=== PATIENT | female | born 1955 | race Caucasian/White ===

== ENCOUNTER 2022-10-05 12:29 | Emergency (ER) | payer OTHER ==
[~2022-10-05] VITALS: Ht 165.1 cm; Wt 77.1 kg
[2022-10-05 17:51] VITALS: BP 136/69
== END 2022-10-05 17:51 | disposition home or self-care (01) ==
LOC: EDH 12:29
DX: M25.511 Pain in right shoulder (principal); R07.81 Pleurodynia; Z88.1 Allergy status to other antibiotic agents; Z88.8 Allergy status to other drugs, medicaments and biological substances; W01.0XXA Fall on same level from slipping, tripping and stumbling without subsequent striking against object, initial encounter; Y93.89 Activity, other specified; Y92.89 Other specified places as the place of occurrence of the external cause; Y99.8 Other external cause status
CPT/HCPCS: 71101; 73030; 93005

== ENCOUNTER 2024-10-11 19:15 | Inpatient (IN) | payer OTHER ==
[~2024-10-11] VITALS: Ht 165.1 cm; Wt 77.1 kg
--- NOTE | 2024-10-11 19:17 | NUR ---
DELAY IN TRIAGR DUE TO REGISTRTION
[2024-10-11] MEDS ORDERED: LAbetaLOL 20MG SYG IV ONE (19:30)
--- NOTE | 2024-10-11 19:30 | ERN ---
ED Note History of Present Illness Stated Complaint: HIGH BLOOD PRESSURE Chief Complaint: Hypertension Time Seen by MD: 19:27 Time Seen by Midlevel: 19:30 Dictation: Ms. Chrsitian Coronado this is a 69-year-old female with history of atrial fibrillation (cardioversion x2), CAD, arthritis, depression, and anxiety presented to the emergency department this evening for evaluation of elevated blood pressure readings. She states that she has been rinsing blood pressure readings with systolic greater than 200 x 20 4 hours. She states she feels lightheaded with dull headache and this evening she had some midsternal chest pain/pressure which she rated 1/10. Her states there blood pressure machine also showed a slow heart rate in the 30s to 50s. She denies having any fever, chills, shortness of breath, cough, palpitations, edema, abdominal pain, nausea, vomiting, diarrhea, melena, hematochezia, hematemesis, dysuria, or diaphoresis. She is currently visiting the [facility]; [facility] from [place]. She has no local physician/counseling director. She is currently taking metoprolol, Tikosyn, and Eliquis for her atrial fibrillation. Allergies: Coded Allergies: cephalexin (Unverified Allergy, Unknown, 10/05/22) doxycycline (Unverified Allergy, Unknown, 10/05/22) meperidine (Unverified Allergy, Unknown, 10/05/22) Emergency Care BRUSH CLEARER SURVEYING: None Past Medical History Past Medical History: A-Fib, Anxiety, Arthritis, Depression, Heart Disease Surgical History: Other (cardioversion x 2), BTL Surgical History Other: HIP LEFT, RIGHT KNEE PSYCH History: anxiety, depression Social History: Negative, Lives with family, Other ([facility] from [place]) History: Not Applicable RN Note Reviewed/Agreed w/PFSH: Yes Review of System Dictation REVIEW OF SYSTEMS: CONSTITUTIONAL: Patient denies fevers, chills, sweats and weight changes. EYES: Patient denies any visual symptoms. EARS, NOSE, AND THROAT: No difficulties with hearing. No symptoms of rhinitis or sore throat. CARDIOVASCULAR: Patient denies palpitations, orthopnea and paroxysmal nocturnal dyspnea. Reported feeling lightheaded. Reports elevated blood pressure readings with systolic level > 200. They also noted slow heart rate on machine at home 30-50. She takes Tikosyn and Metoprolol. She has chest pain/pressure rates 1/10. RESPIRATORY: No dyspnea on exertion, no wheezing or cough. GI: No nausea, vomiting, diarrhea, constipation, abdominal pain, hematochezia or melena. : No urinary hesitancy or dribbling. No nocturia or urinary frequency. No a bnormal urethral discharge. MUSCULOSKELETAL: No myalgias or arthralgias. NEUROLOGIC: No chronic headaches, no seizures. Patient denies numbness, tingling or weakness. PSYCHIATRIC: Patient denies problems with mood disturbance. No problems with anxiety. ENDOCRINE: No excessive urination or excessive thirst. DERMATOLOGIC: Patient denies any rashes or skin changes. Initial Vital Sign VS Vital Signs Date Time Temp Pulse Resp B/P (MAP) Pulse Ox O2 Delivery O2 Flow Rate FiO2 10/11/24 19:16 97.3 72 16 216/122 99 Room Air Physical Exam Dictation Vital signs: Reviewed. afebrile. Constitutional: No acute distress. Non-toxic appearing. significant other at bedside. Head/Face: Normocephalic, atraumatic. Eyes: Periorbital areas with no swelling, redness, or edema. Lids and lashes are normal. Conjunctival injection is absent. Sclera anicteric. Pupils equal, round, reactive to light. ENT: Pinnas intact and no signs of trauma or erythema. Ear canals clear and no discharge. TMs no erythema. No nasal discharge or bleeding noted. Oropharynx with no exudate, redness, swelling, masses, exudates, or evidence of obstruction. Uvula midline. Mucous membranes moist. Neck: Trachea midline, no masses palpated, and no cervical lymphadenopathy. No swelling. Supple, full range of motion. Chest/Axilla: No tenderness, no crepitus, no paradoxical movement, no retractions. Cardiovascular: Regular rate, regular rhythm, no murmur, no gallops. Symmetric pulses. No peripheral edema. BP 216/112. 12 lead EKG reflects a sinus rhythm with PVCs; no ST elevation. There is borderline ST depression in anterior lateral leads. Respiratory: Respirations even and unlabored. Lung sounds clear; no wheezes, rales or rhonchi. Room air SpO2 98% Gastrointestinal: Inspection is normal. No distention is appreciated. Bowel sounds are normal. No mass or organomegaly . There is no tenderness. No rebound. No rigidity. No voluntary or involuntary guarding. No Cunningham's sign. Neurological: Normal speech, gross motor function intact, gross sensory function intact. No focal weakness/Paresthesia. Musculoskeletal/Extremities: All extremities have full range of motion, no pain or tenderness on palpation. Symmetric pulses. Integumentary: Intact. Skin is normal color, warm and dry. Cap refill less than 3 seconds. Results (Laboratory/Radiology) Laboratory/Radiology Laboratory Tests Test 10/11/24 19:30 White Blood Count 6.9 K/uL (4.8-10.8) Red Blood Count 4.78 MIL/uL (4.00-5.50) Hemoglobin 14.6 g/dL (12.0-16.0) Hematocrit 44.5 % (36-48) Mean Corpuscular Volume 93.1 fL (79-99) Mean Corpuscular Hemoglobin 30.5 pg (27.0-33.0) Mean Corpuscular Hemoglobin Concent 32.8 g/dL (32.0-36.0) Red Cell Distribution Width 13.9 % (11.0-15.5) Platelet Count 256 K/uL (130-400) Mean Platelet Volume 9.5 fL (7.5-10.5) Immature Granulocyte % (Auto) 0.4 % (0-1) Neutrophils (%) (Auto) 55.9 % (40.0-77.0) Lymphocytes (%) (Auto) 33.3 % (21.0-51.0) Monocytes (%) (Auto) 9.0 % (3.0-13.0) Eosinophils (%) (Auto) 1.0 % (0.0-8.0) Basophils (%) (Auto) 0.4 % (0.0-5.0) Neutrophils # (Auto) 3.9 K/uL (1.8-7.7) Lymphocytes # (Auto) 2.3 K/uL (1.0-4.8) Monocytes # (Auto) 0.6 K/uL (0.1-1.0) Eosinophils # (Auto) 0.07 K/uL (0.00-0.70) Basophils # (Auto) 0.03 K/uL (0.00-0.20) Absolute Immature Granulocyte (auto 0.03 K/uL (0-1) Nucleated Red Blood Cells 0.0 % (0.0-0.19) Sodium Level 136 mmol/L (136-145) Potassium Level 3.8 mmol/L (3.5-5.1) Chloride Level 97 mmol/L (101-111) L Carbon Dioxide Level 31 mmol/L (21-32) Blood Urea Nitrogen 9 mg/dL (7-18) Creatinine 0.9 mg/dL (0.5-1.0) Glomerular Filtration Rate Calc 68 mL/min (>90) Random Glucose 105 mg/dL (70-105) Total Calcium 10.3 mg/dL (8.5-10.1) H Magnesium Level 1.80 mg/dL (1.80-2.40) Total Creatine Kinase 50 U/L (21-232) Troponin I High Sensitivity 15 ng/L (4-50) B-Type Natriuretic Peptide 137 pg/mL (0-100) H Labs Reviewed?: Yes EKG Comment: EKG Interpretation: Time Reviewed: 1957 Ventricular rate: 66 bpm PA Interval: 158 ms QRS duration: [address] elevation; some ST depression in anterior lateral leads Clinical impression: Sinus rhythm with PVCs EKG Reviewed and interpreted by Dr. Dinah Duque X-RAY Comment: PATIENT: DAKSHA ROJAS MR#: [id number] : 1955 SEX: F AGE: 69 LOCATION: [facility] ORDER 23 STATUS: [facility] REPORT#: [id number] SERVICE 22 REASON: CHEST PAIN ORDERING PHYSICIAN: KRISTIN DUQUE MD PROCEDURE: CXR1VW - CHEST 1VW CHEST 1VW CLINICAL HISTORY: CHEST PAIN COMPARISON: 10/05/2022 TECHNIQUE: Single view of the chest was obtained. FINDINGS: Lungs are clear. The cardiac size and mediastinum are unremarkable. The bony structures are stable. IMPRESSION: No acute cardiopulmonary process identified. DICTATED BY: MIRTA MURO DO DATE: 10/11/242050 ELECTRONICALLY SIGNED BY: MIRTA MURO DO DATE: 10/11/242054 ED Course ED Course Orders Procedure Category Date Status Time Vital Signs Per CPOE 10/11/24 Transmitted Routine 19:23 B-Type Natriuretic LAB 10/11/24 Complete Peptide 19:23 Chest 1vw RAD 10/11/24 Resulted 19:23 12 Lead Ekg Tracing- EKG 10/11/24 Logged Technical 19:23 Oxygen By Nc/Pulse Ox CPOE 10/11/24 Transmitted 19:23 Maintain Iv CPOE 10/11/24 Transmitted 19:23 Iv Insertion CPOE 10/11/24 Transmitted 19:23 Cardiac Monitoring CPOE 10/11/24 Transmitted 19:23 Pulse Oximetry With CPOE 10/11/24 Transmitted Vs And Prn 19:23 Cbc With Differential LAB 10/11/24 Complete 19:23 Activity: Br W/Brp CPOE 10/11/24 Transmitted With Assist 19:23 Creatine Kinase, Total LAB 10/11/24 Complete 19:23 Troponin I High LAB 10/11/24 Complete Sensitivity 19:23 Urinalysis Profile LAB 10/11/24 Logged 19:23 Troponin Poc Order LAB 10/11/24 Complete Only 19:23 Bedside Troponin-I LAB.ER 10/11/24 In Process (Poc) 19:23 Basic Metabolic Panel LAB 10/11/24 Complete 19:23 Aspirin 325mg Tab PHA 10/11/24 Complete (Aspirin 325mg Tab) 19:30 Labetalol 20mg Syg PHA 10/11/24 Complete (Trandate 20mg Syg) 19:30 Magnesium LAB 10/11/24 Complete 20:10 Current Medications Medications (Trade) Dose Ordered Sig/Cindy Route PRN Reason Start Time Stop Time Status Last Admin Dose Admin Aspirin (Aspirin 325mg Tab) 325 mg ONCE ONCE PO 10/11/24 19:30 10/11/24 19:34 DC 10/11/24 20:11 Labetalol HCl (TRANdate 20MG SYG) 10 mg ONCE ONCE IV 10/11/24 19:30 10/11/24 20:11 DC Vital Signs Date Time Temp Pulse Resp B/P (MAP) Pulse Ox O2 Delivery O2 Flow Rate FiO2 10/11/24 19:16 97.3 72 16 216/122 99 Room Air Upon arrival to the ED noted elevated blood pressure reading of 216/122. Twelve lead EKG reflects a sinus rhythm with unifocal PVC and no ST elevations; borderline ST depression in anterior lateral wheeze. Laboratory findings as noted below Cl 97, Ca 10.3, and BNP 137. Initial troponin is not elevated at 15. Magnesium 1.8. while in the ED she received Aspirin. Patient took her own doses of Tikosyn and Eliquis. BP trending down; 178/85. Chest pressure rated 1/10. Echocardiogram is pending. These findings were discussed with [facility] Hospitalist CHERYL Frias who accepts patient for admission to group. Medical Decision Making MDM MDM: Differential diagnosis: ACS, atrial fibrillation with RVR, electrolyte derangement Rationale: Tests considered and ordered secondary to shared decision making include: labs, ECG and radiology Previous outside records reviewed: Old ER visits. Risk of complication and/or morbidity or mortality of patient management: None Medications-Per medication reconciliation Need for hospitalization: Patient does meet criteria for hospitalization. Need for emergency major/minor surgery: No There are no social concerns with this patient. Prescription drug management Prescriptions will include symptomatic care Patient's prior external medical records from other ER visits were reviewed by me as indicated. Prior testing and results from previous visits were reviewed. Prior tests were taken into account with medical decision making and resource utilization, independent historian/historians were used to obtain complete medical history. I independently interpreted the test that were performed, results were reviewed by me and considered findings on radiology if ordered. Medical management and examination interpretation discussions were had by me with other qualified healthcare professionals as indicated for the patient's care. DX & DISP Disposition: Discharge Departure Impression: Primary Impression: Chest pain with high risk for cardiac etiology Additional Impressions: Hypertensive urgency, Bradycardia, History of atrial fibrillation Condition: Stable Assign Patient to: Dr. Molina Jacobs Referrals: SELF,REFERRAL (PCP) NITA SILVA NP Oct 11, 2024 19:30
[2024-10-11 19:37] LABS: BASOPHILS # (AUTO) 0.03 K/uL (0.00-0.20); BASOPHILS % (AUTO) 0.4 % (0.0-5.0); EOSINOPHILS # (AUTO) 0.07 K/uL (0.00-0.70); HEMATOCRIT 44.5 % (36-48); IMMATURE GRANULOCYTE ABSOLUTE 0.03 K/uL (0-1); LYMPHOCYTES # (AUTO) 2.3 K/uL (1.0-4.8); LYMPHOCYTES % (AUTO) 33.3 % (21.0-51.0); MEAN CORPUSCULAR HEMOGLOBIN 30.5 pg (27.0-33.0); MEAN CORPUSCULAR HGB CONC 32.8 g/dL (32.0-36.0); MEAN CORPUSCULAR VOLUME 93.1 fL (79-99); MONOCYTES # (AUTO) 0.6 K/uL (0.1-1.0); NEUTROPHILS # (AUTO) 3.9 K/uL (1.8-7.7); NEUTROPHILS % (AUTO) 55.9 % (40.0-77.0); PLATELET COUNT (AUTO) 256 K/uL (130-400); RED BLOOD CELL COUNT(AUTO) 4.78 MIL/uL (4.00-5.50); RED CELL DISTRIBUTION WIDTH 13.9 % (11.0-15.5); WHITE BLOOD COUNT (AUTO) 6.9 K/uL (4.8-10.8)
[2024-10-11 19:44] LABS: CREATININE 0.9 mg/dL (0.5-1.0); POTASSIUM 3.8 mmol/L (3.5-5.1)
[2024-10-11] MEDS: ASPIRIN 325MG TAB PO ONE (20:11)
[2024-10-11 20:26] LABS: B-TYPE NATRIURETIC PEPTIDE 137 pg/mL (0-100)
--- NOTE | 2024-10-11 20:55 | HMCIMG ---
CHEST 1VW CLINICAL HISTORY: CHEST PAIN COMPARISON: 10/05/2022 TECHNIQUE: Single view of the chest was obtained. FINDINGS: Lungs are clear. The cardiac size and mediastinum are unremarkable. The bony structures are stable. IMPRESSION: No acute cardiopulmonary process identified.
--- NOTE | 2024-10-11 21:56 | HP ---
[facility] HISTORY AND PHYSICAL Date of Service: Oct 11, 2024 Time of Service: 21:56 ATTENDING/SUPERVISING PHYSICIANS: Dr. Jacobs and Dr. Momin HISTORY OF PRESENT ILLNESS: Ms. Christian Coronado this is a 69-year-old female with history of atrial fibrillation (cardioversion x2), CAD, arthritis, depression, and anxiety presented to the emergency department for evaluation of elevated blood pressure readings. The patient stated that her systolic blood pressure has been greater than 200 for 4 hours. Her reported in heart rate in the 30s to 50s. She reported associated symptoms of lightheadedness, dull headache, some midsternal chest pain/pressure which she rated 1/10 which prompted the ED visit. She denied having any fever, chills, shortness of breath, cough, palpitations, edema, abdominal pain, nausea, vomiting, diarrhea, melena, hematochezia, hematemesis, dysuria, or diaphoresis. She is currently visiting the [facility]; she is a winter [place] from [place]. She has no local physician nor cardio logist. She sees a cardiac sales and operations trainee [facility] who instructed her to take Tikosyn BID. She is also currently taking metoprolol and Eliquis for her atrial fibrillation. ED provider reports that the patient was noted to having bigeminy, and bra dycardia, and hypotension. ED provider reported that the patient was informed not to take her night time Tikosyn, but that the patient is still took it. ED provider request patient be admitted with the diagnosis of chest pain with high risk for cardiac etiology, hypertension, and bradycardia. The patient was admitted under the [facility] hospitalist team. I went to assess the patient at bedside. Patient denied chest pain, shortness of breath, any other pain, problem or concern during my evaluation. was at bedside. I informed them of labs, diagnostics, and plan of care. I answered patient's multiple questions. They verbalized understanding and are in agreement with the plan. Plan and assessment are listed below. REVIEW OF SYSTEMS 12-point ROS reviewed with patient. All pertinent positives mentioned above. Otherwise negative, non-pertinent, or noncontributory. PAST MEDICAL HISTORY: As mentioned above PAST SURGICAL HISTORY: Cardioversion x2, BTL, left hip surgery, right knee surgery PAST SOCIAL HISTORY: Patient denied: Alcohol, tobacco, illicit drug use. Lives with family. Patient is a [place] from [place]. FAMILY HISTORY: Noncontributory Coded Allergies: cephalexin (Unverified Allergy, Unknown, 10/05/22) doxycycline (Unverified Allergy, Unknown, 10/05/22) meperidine (Unverified Allergy, Unknown, 10/05/22) PHYSICAL EXAM GENERAL APPEARANCE: The patient is awake, alert, and oriented, in no acute cardiopulmonary distress. NEUROLOGICAL: Cranial nerves II-XII grossly intact. Motor is 5/5 in bilateral upper and lower extremities proximal to distal. No sensory deficits. HEENT: Face is symmetric. Pupils are equal and reactive. Extraocular movements are intact. NECK: Supple. No JVD. No thyromegaly. No submental, submandibular, pre- /postauricular, occipital or supraclavicular lymphadenopathy. CHEST: Normal chest expansion. No Telemetry. LUNGS: Absence of any rales, rhonchi or any wheezing. CARDIOVASCULAR: Regular. S1 and S2 normal. No appreciable rubs, murmurs or gallops. ABDOMEN: Soft, nontender, and nondistended. There is no rebound, voluntary guarding, or rigidity. : Deferred. No [place]. EXTREMITIES: Non-edematous and not cyanotic. No clubbing. Good capillary refi ll. SKIN: No skin breakdown. Vital Sign (Last 24 Hours) 10/11/24 19:16 Temp 97.3 Pulse 72 Resp 16 B/P (MAP) 216/122 Pulse Ox 99 O2 Delivery Room Air LABS: Laboratory: Test 10/11/24 21:20 10/11/24 19:30 Range/Units Troponin I < 0.05 0.00-0.05 ng/mL White Blood Count 6.9 4.8-10.8 K/uL Red Blood Count 4.78 4.00-5.50 MIL/uL Hemoglobin 14.6 12.0-16.0 g/dL Hematocrit 44.5 36-48 % Mean Corpuscular Volume 93.1 79-99 fL Mean Corpuscular Hemoglobin 30.5 27.0-33.0 pg Mean Corpuscular Hemoglobin Concent 32.8 32.0-36.0 g/dL Red Cell Distribution Width 13.9 11.0-15.5 % Platelet Count 256 130-400 K/uL Mean Platelet Volume 9.5 7.5-10.5 fL Immature Granulocyte % (Auto) 0.4 0-1 % Neutrophils (%) (Auto) 55.9 40.0-77.0 % Lymphocytes (%) (Auto) 33.3 21.0-51.0 % Monocytes (%) (Auto) 9.0 3.0-13.0 % Eosinophils (%) (Auto) 1.0 0.0-8.0 % Basophils (%) (Auto) 0.4 0.0-5.0 % Neutrophils # (Auto) 3.9 1.8-7.7 K/uL Lymphocytes # (Auto) 2.3 1.0-4.8 K/uL Monocytes # (Auto) 0.6 0.1-1.0 K/uL Eosinophils # (Auto) 0.07 0.00-0.70 K/uL Basophils # (Auto) 0.03 0.00-0.20 K/uL Absolute Immature Granulocyte (auto 0.03 0-1 K/uL Nucleated Red Blood Cells 0.0 0.0-0.19 % Sodium Level 136 136-145 mmol/L Potassium Level 3.8 3.5-5.1 mmol/L Chloride Level 97 L 101-111 mmol/L Carbon Dioxide Level 31 21-32 mmol/L Blood Urea Nitrogen 9 7-18 mg/dL Creatinine 0.9 0.5-1.0 mg/dL Glomerular Filtration Rate Calc 68 >90 mL/min Random Glucose 105 70-105 mg/dL Total Calcium 10.3 H 8.5-10.1 mg/dL Magnesium Level 1.80 1.80-2.40 mg/dL Total Creatine Kinase 50 21-232 U/L Troponin I High Sensitivity 15 4-50 ng/L B-Type Natriuretic Peptide 137 H 0-100 pg/mL DIAGNOSTICS / RADIOLOGY: [ ] ASSESSMENT: Chest pain with high risk for cardiac etiology, POA Hypertensive urgency, POA Bradycardia, POA Arrhythmias, POA Acute complicated cystitis, POA Hyperglycemia History of AFib and cardioversion x2, on metoprolol, Eliquis, and Tikosyn Anxiety/depression Coronary artery disease Arthritis Septuagenarian atrial fibrillation (cardioversion x2), CAD, arthritis, depression, and anxiety PLAN: Admit to PCCU with continuous cardiac monitoring. Troponin and EKGs series. Cardiology consult in a.m.. 2D echo in a.m. Start home medication Eliquis. Hold home medication metoprolol and Tikosyn due to severe bradycardia. Reconcile home medications once available. P.r.n. medications for: Pain management, hypertension, nausea, vomiting, fever, constipation. Oxygen supplementation as needed to maintain oxygen levels equal to greater than 92%. Aspirin 81 mg p.o. daily. Atorvastatin 40 mg p.o. daily. Start Rocephin 2 grams IV daily. (Cephalexin reaction "Vomiting only") I&Os. Blood pressure checks every 4 hours and as needed. Glucometer checks before meals and at bedtime with insulin regular sliding scale. Monitor renal and liver function. Monitor electrolytes and treat accordingly. A.m. labs: CBC, BMP, Mag, phos, troponin, A1c, TSH. DVT and GI prophylaxis MARYJO DONATO LOGISTICAL ENGINEER Oct 11, 2024 21:56
[2024-10-11] MEDS ORDERED: ondanSETRON 4MG INJ IVP PRN (22:30)
[2024-10-11] MEDS ORDERED: acetaMINOPHEN 650 MG SUPPOSITORY RC PRN (22:30)
[2024-10-11] MEDS ORDERED: LACTULOSE 20 GM/30 ML UDCUP PO PRN (22:30)
[2024-10-11] MEDS ORDERED: acetaMINOPHEN 325 MG TAB PO PRN (22:30)
[2024-10-11] MEDS ORDERED: doCUSate SODIUM 100 MG CAP PO PRN (22:30)
[2024-10-11] MEDS ORDERED: TEMAZepam 15 MG CAPSULE PO PRN (22:30)
[2024-10-12] MEDS: atorVAStatin 40 MG TABLET PO SCH (00:17)
[2024-10-12] MEDS: hydrALAZine 20MG/ML VIAL IV PRN (00:18)
[2024-10-12 00:29] LABS: APPEARANCE,URINE CLEAR (CLEAR); BILIRUBIN,URINE NEGATIVE (NEGATIVE); COLOR,URINE LIGHT-YELLOW (YELLOW); GLUCOSE, URINE (UA) NEGATIVE (NEGATIVE); KETONES,URINE 10 mg/dL (NEGATIVE); LEUKOCYTE ESTERASE ,URINE 250 Leu/uL (NEGATIVE); NITRATE,URINE NEGATIVE (NEGATIVE); OCCULT BLOOD,URINE SMALL (NEGATIVE); PROTEIN,URINE NEGATIVE (NEGATIVE); UROBILINOGEN,URINE 0.2 mg/dL (0.2-1.0)
[2024-10-12 00:34] LABS: ADD UA MICROSCOPIC YES
[2024-10-12 00:36] LABS: MUCUS,URINE RARE LPF (None Seen); SQUAMOUS EPITHELIAL CELL,UR RARE /HPF (0-2)
--- NOTE | 2024-10-12 01:34 | EKG ---
[facility] Test Date: 2024-10-11 Test Time: 19:56:17 Pat Name: DAKSHA GUERRERO Department: EDHIP Room: ED 17 Gender: F Manager Of Learning: [id number] : 1955 Requested By: KRISTIN GUTIERREZ Order Number: [id number] Reading MD: Alo Hilliard Measurements Intervals [place] Rate: 66 P: 80 SD: 158 QRS: -21 QRSD: 101 T: 52 QT: 448 QTc: 463 Interpretive Statements Sinus rhythm Multiple premature complexes, vent & supraven Borderline ST depression, anterolateral leads Electronically Signed On 10-12-2024 14:24:55 COUNTER SUPERVISOR by Alo Hilliard Please click the below link to view image of tracing.
[2024-10-12 07:00] LABS: HEMATOCRIT 41.1 % (36-48); MEAN CORPUSCULAR HEMOGLOBIN 30.5 pg (27.0-33.0); MEAN CORPUSCULAR HGB CONC 32.8 g/dL (32.0-36.0); RED BLOOD CELL COUNT(AUTO) 4.42 MIL/uL (4.00-5.50); WHITE BLOOD COUNT (AUTO) 6.5 K/uL (4.8-10.8)
[2024-10-12 07:20] LABS: HEMOGLOBIN A1C 5.7 % (4.0-6.0)
[2024-10-12] MEDS: INSULIN humuLIN R 100 UNIT/ML 3ML SQ SCH (07:30)
--- NOTE | 2024-10-12 07:30 | NUR ---
PT. FAMILY MEMBERS REFUSING ANY TYPE OF TREATMENT UNTIL SPEAK TO RENAL MD INCLUDING LABS, XRAYS.
[2024-10-12 07:32] LABS: CREATININE 0.8 mg/dL (0.5-1.0); MAGNESIUM 1.7 mg/dL (1.80-2.40); PHOSPHORUS 3.6 mg/dL (2.5-4.9); POTASSIUM 3.8 mmol/L (3.5-5.1); THYROID STIMULATING HORMONE 3.67 uIU/mL (0.36-3.74)
[2024-10-12] MEDS: ASPIRIN 81MG CHEW TAB PO SCH (08:48)
[2024-10-12] MEDS: MAGNESIUM 2GM PREMIX 50ML 50 ML IV ONE (09:10)
[2024-10-12] MEDS ORDERED: MAGNESIUM 2GM PREMIX 50ML 50 ML IV PRN (09:30)
[2024-10-12] MEDS ORDERED: PoTASSium chl 10% ELIXIR 20MEQ 20 MEQ/15 ML UDCUP PO PRN (09:30)
[2024-10-12] MEDS ORDERED: ceFEPime HCL 1 GM VIAL IVPB SCH (09:30)
[2024-10-12] MEDS ORDERED: GLUCAGON 1MG KIT 1 MG ML IM PRN (09:30)
[2024-10-12] MEDS ORDERED: PoTASSium chloRIDE 10MEQ/100ML 100 ML IV PRN (09:30)
[2024-10-12] MEDS: CEFTRIAXONE 2GM VIAL IVPB SCH (09:30)
[2024-10-12] MEDS ORDERED: DEXTROSE 50%-WATER 50 ML DISP.SYRIN IV PRN (09:30)
[2024-10-12] MEDS ORDERED: BUPR-93 PO (09:34)
[2024-10-12] MEDS ORDERED: METO-408 PO (09:34)
[2024-10-12] MEDS ORDERED: APIX5TAB PO (09:34)
[2024-10-12] MEDS ORDERED: [UNRECOGNIZED DRUG - CODE] PO (09:34)
[2024-10-12] MEDS ORDERED: ARIP5TAB16 PO (09:34)
--- NOTE | 2024-10-12 10:28 | EKG ---
[facility] Test Date: 2024-10-12 Test Time: 10:21:55 Pat Name: DAKSHA GUERRERO Department: EDHIP Room: ED 17 Gender: F Senior Cytogenetics Laboratory Director: [id number] : 1955 Requested By: MARYJO DONATO Order Number: [id number] Reading MD: Alo Hilliard Measurements Intervals [place] Rate: 72 P: 84 UT: 150 QRS: 11 QRSD: 94 T: 84 QT: 429 QTc: 478 Interpretive Statements Sinus rhythm Multiform ventricular premature complexes Borderline ST depression, anterolateral leads Electronically Signed On 10-12-2024 14:25:08 NEUROLOGY PROFESSOR by Alo Hilliard Please click the below link to view image of tracing.
--- NOTE | 2024-10-12 11:13 | CONS ---
CONSULT NOTE: CARDIOLOGY Reason for consult: HYPERTENSION, ATRIAL FIBRILLATION HPI/story at presentation: This is a pleasant 69-year-old female with past medical history as below presents with complaints of dizziness and was found to be hypertensive. No active issues with chest discomfort or shortness of breath etc. Blood pressures are better in the 1 3-1 50 range at this time. She has noticed atrial fibrillation on Tikosyn and also has a history of bradycardia at presentation. She had multiple PVCs as well. Slowest reported rate in the 70s and 80s and PVCs may have contributed to pseudo bradycardia. Subjective: 10/12/2024 no active cardiac complaints Past medical history: See below Allergies, Meds See chart Review of systems Review of Systems Constitutional: Negative for chills and fever. HENT: Negative for ear discharge and ear pain. Eyes: Negative for photophobia and discharge. Respiratory: Negative for cough, sputum production and stridor. Cardiovascular: Negative for chest pain and palpitations. Gastrointestinal: Negative for diarrhea and vomiting. Genitourinary: Negative for frequency. Musculoskeletal: Negative for myalgias. Skin: Negative for rash. Neurological: Negative for focal weakness and seizures. Endo/Heme/Allergies: Negative for polydipsia. Psychiatric/Behavioral: Negative for hallucinations. Vitals see chart PHYSICAL EXAMINATION GENERAL: The patient is alert and oriented*3 HEENT: Nonicteric sclerae, non traumatic HEART: Regular rate and rhythm with no murmurs LUNGS: Clear to auscultation bilaterally ABDOMEN: No acute issues, non tender GENITAL, RECTAL: deferred SKIN: No rash NEUROLOGIC: NFND EXTREMITIES: No edema ASSESSMENT HYPERTENSION WITH URGENCY At presentation ATRIAL FIBRILLATION With rhythm control with Tikosyn at home Also beta-heena, anticoagulation with Eliquis Will magnesium, replaced, 09/2024 BRADYCARDIA At presentation MULTIPLE QT PROLONGING AGENTS Patient is currently on Tikosyn bupropion and Abilify Caution with multiple QT prolonging agents CYSTITIS At presentation On antibiotics, 10/12/2024 CORE MEASURES On aspirin statin OTHER MEDICAL PROBLEMS anxiety, depression Arthritis PLAN 10/12/2024 will add a small dose of losartan to help her blood pressures and follow blood pressures while inpatient. Will need outpatient log of blood pressures and outpatient adjustment of blood pressure regimen as well. Current blood pressures are 130-1 50 range. Will restart home medications including Tikosyn and Eliquis. Will need to watch QT interval while on bupropion and Abilify and Tikosyn. She is on a smaller dose of Tikosyn but risk is on the higher side with 3 QT prolonging agents and multiple PVCs. Magnesium was already replaced. ATTESTATION I was involved substantially in the care of this patient Number and complexity of problems addressed: 1 acute illness with systemic features Amount and or complexity of data Review of prior external note(s) from each unique source: 2+ Ordering of each unique test : 0 Review of the result(s) of each unique test: 2+ Assessment requiring an independent historian(s): No Independent interpretation of test performed by another MD/QHCP/appropriate source (not separately reported) : No Discussion of management or test interpretation with external MD/QHCP /appropriate source (not separately reported) : No Risk status (cardiac, billing related): Moderate DELORIS DELUNA MD Oct 12, 2024 11:12
[2024-10-12] MEDS: PoTASSium chloRIDE 10MEQ SR 10 MEQ/TAB TAB.SR.24H PO PRN (11:34)
--- NOTE | 2024-10-12 11:49 | NUR ---
PT. TOOK HER OWN HOME MEDICATIONS INCLUDING ELIQUIS DIRECTED BY . WILL CONT TO MONITOR PER PROTOCOL.
[2024-10-12 12:00] VITALS: BP 136/70; PULSE 71; RESP 16; TEMP 98
--- NOTE | 2024-10-12 13:09 | NUR ---
DCP Patient is a [place] from [place], living in a second floor condo on [address] with a tub and lives with Doug Gonzales, [phone]. States she is retired, remains independent and drives self, not in [place]. able to complete ADL's on her own. has a cane available, history of total knee replacement, right five months ago. Denies home health services, home care provider or dialysis. PCP - [place] Fuel Handler Sagar Grimes [facility] Upon discharge, Doug Gonzales, [phone] will take her home and assist with care. Addendum: 10/12/24 at 1316 by DENISE BADILLO RN CM Amended: Links added.
--- NOTE | 2024-10-12 14:35 | EKG ---
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 : 1955 Requested By: MARYJO DONATO Order Number: [id number] Reading MD: Bj Oakley Measurements Intervals [place] Rate: 72 P: 84 FL: 129 QRS: -6 QRSD: 98 T: 61 QT: 464 QTc: 503 Interpretive Statements Sinus rhythm Multiple premature complexes, vent & supraven Borderline ST depression, anterolateral leads Prolonged QT interval Compared to ECG 10/12/2024 10:21:55 Prolonged QT interval now present Ventricular premature complex(es) no longer present ST (T wave) deviation still present Electronically Signed On 10-13-2024 16:04:07 COMPLAINT OPERATOR by Bj Oakley Please click the below link to view image of tracing.
--- NOTE | 2024-10-12 14:40 | PN ---
[facility] PROGRESS NOTE Date of Service: Oct 12, 2024 Time of Service: 14:30 SUBJECTIVE: Patient resting comfortably in bed. No new complaints concerns. No acute events reported overnight.Blood pressures improved. REVIEW OF SYSTEMS 12-point ROS reviewed with patient. All pertinent positives mentioned above. Otherwise negative, non-pertinent, or noncontributory. PHYSICAL EXAM GENERAL APPEARANCE: The patient is awake, alert, and oriented, in no acute cardiopulmonary distress. NEUROLOGICAL: Cranial nerves II-XII grossly intact. Motor is 5/5 in bilateral upper and lower extremities proximal to distal. No sensory deficits. HEENT: Face is symmetric. Pupils are equal and reactive. Extraocular movements are intact. NECK: Supple. No JVD. No thyromegaly. No submental, submandibular, pre- /postauricular, occipital or supraclavicular lymphadenopathy. CHEST: Normal chest expansion. No Telemetry. LUNGS: Absence of any rales, rhonchi or any wheezing. CARDIOVASCULAR: Regular. S1 and S2 normal. No appreciable rubs, murmurs or gallops. ABDOMEN: Soft, nontender, and nondistended. There is no rebound, voluntary guarding, or rigidity. : Deferred. No Damico. EXTREMITIES: Non-edematous and not cyanotic. No clubbing. Good capillary refill. SKIN: No skin breakdown. Vital Signs (last 8hr) Date Time Temp Pulse Resp B/P (MAP) Pulse Ox O2 Delivery O2 Flow Rate FiO2 10/12/24 07:03 70 16 121/65 99 Room Air* 0 21 LABS: Laboratory: Test 10/12/24 12:21 10/12/24 11:41 10/12/24 06:39 10/12/24 00:15 Range/Units Troponin I High Sensitivity 20 4-50 ng/L Whole Blood Glucose 94 70-110 MG/DL White Blood Count 6.5 4.8-10.8 K/uL Red Blood Count 4.42 4.00-5.50 MIL/uL Hemoglobin 13.5 12.0-16.0 g/dL Hematocrit 41.1 36-48 % Mean Corpuscular Volume 93.0 79-99 fL Mean Corpuscular Hemoglobin 30.5 27.0-33.0 pg Mean Corpuscular Hemoglobin Concent 32.8 32.0-36.0 g/dL Red Cell Distribution Width 14.0 11.0-15.5 % Platelet Count 229 130-400 K/uL Mean Platelet Volume 9.6 7.5-10.5 fL Nucleated Red Blood Cells 0.0 0.0-0.19 % Sodium Level 136 136-145 mmol/L Potassium Level 3.8 3.5-5.1 mmol/L Chloride Level 98 L 101-111 mmol/L Carbon Dioxide Level 30 21-32 mmol/L Blood Urea Nitrogen 8 7-18 mg/dL Creatinine 0.8 0.5-1.0 mg/dL Glomerular Filtration Rate Calc 79 >90 mL/min Random Glucose 131 H 70-105 mg/dL Hemoglobin A1c 5.7 4.0-6.0 % Estimated Average Glucose (eAG) 117 70-126 mg/dL Total Calcium 9.8 8.5-10.1 mg/dL Phosphorus Level 3.6 2.5-4.9 mg/dL Magnesium Level 1.70 L 1.80-2.40 mg/dL Thyroid Stimulating Hormone (TSH) 3.67 0.36-3.74 uIU/mL Urine Color LIGHT-YELLOW YELLOW Urine Appearance CLEAR CLEAR Urine pH 6.0 5.0-8.0 Urine Specific Harlan 1.008 1.001-1.031 Urine Protein NEGATIVE NEGATIVE mg/dL Urine Glucose (UA) NEGATIVE NEGATIVE mg/dL Urine Ketones 10 H NEGATIVE mg/dL Urine Occult Blood SMALL H NEGATIVE Urine Nitrate NEGATIVE NEGATIVE Urine Bilirubin NEGATIVE NEGATIVE mg/dL Urine Urobilinogen 0.2 0.2-1.0 mg/dL Urine Leukocyte Esterase 250 H NEGATIVE Gwen/uL Urine RBC 11-25 H 0-1 /HPF Urine WBC 11-25 H 0-1 /HPF Urine Squamous Epithelial Cells RARE 0-2 /HPF Urine Bacteria None None Seen /HPF Test 10/11/24 21:20 10/11/24 19:30 Range/Units Troponin I < 0.05 0.00-0.05 ng/mL Immature Granulocyte % (Auto) 0.4 0-1 % Neutrophils (%) (Auto) 55.9 40.0-77.0 % Lymphocytes (%) (Auto) 33.3 21.0-51.0 % Monocytes (%) (Auto) 9.0 3.0-13.0 % Eosinophils (%) (Auto) 1.0 0.0-8.0 % Basophils (%) (Auto) 0.4 0.0-5.0 % Neutrophils # (Auto) 3.9 1.8-7.7 K/uL Lymphocytes # (Auto) 2.3 1.0-4.8 K/uL Monocytes # (Auto) 0.6 0.1-1.0 K/uL Eosinophils # (Auto) 0.07 0.00-0.70 K/uL Basophils # (Auto) 0.03 0.00-0.20 K/uL Absolute Immature Granulocyte (auto 0.03 0-1 K/uL Total Creatine Kinase 50 21-232 U/L B-Type Natriuretic Peptide 137 H 0-100 pg/mL Current Medications Medications (Trade) Dose Ordered Sig/Cindy Route PRN Reason Start Time Stop Time Status Last Admin Dose Admin Acetaminophen (TYLenol 325MG TAB) 650 mg Q6H PRN PO FEVER/MILD PAIN LEVEL 1-3 10/11/24 22:30 11/10/24 22:29 Acetaminophen (TYLenol 650MG SUPPOSITORY) 650 mg Q6H PRN RC FEVER / MILD PAIN 1-3 IF NPO 10/11/24 22:30 11/10/24 22:29 Aspirin (Aspirin 81mg Chew Tab) 81 mg DAILY PO 10/12/24 09:00 11/11/24 08:59 10/12/24 08:48 81 MG Atorvastatin Calcium (LIPItor 40MG) 40 mg HS PO 10/11/24 22:20 11/10/24 22:19 10/12/24 00:17 40 MG Cefepime HCl (MAXipime 1 GM vial) 1 gm Q8H IVPB 10/12/24 09:30 10/12/24 09:26 DC Ceftriaxone Sodium (Rocephin 2gm Inj) 2 gm Q24H IVPB 10/12/24 09:30 10/22/24 09:29 10/12/24 09:30 2 GM Dextrose (D50w) 50 ml AD PRN IV HYPOGLYCEMIA PROTOCOL 10/12/24 09:30 11/11/24 09:29 Docusate Sodium (COLace 100MG CAP) 100 mg BID PRN PO c 10/11/24 22:30 11/10/24 22:29 Glucagon (Glucagon 1mg Kit) 1 mg AD PRN IM HYPOGLYCEMIA PROTOCOL 10/12/24 09:30 11/11/24 09:29 Hydralazine HCl (APRESOLine 20MG INJ) 10 mg Q2H PRN IV SBP GREATER THAN 160 10/11/24 22:30 11/10/24 22:29 10/12/24 00:18 10 MG Insulin Human Regular (humuLIN R 100 UNIT/ML 3ML) INSULIN SLIDING SCAL... ACHS SQ 10/12/24 07:30 11/11/24 07:29 Lactulose (Constulose 20gm/ 30ml Udcup) 20 gm Q6H PRN PO CONSTIPATION 10/11/24 22:30 11/10/24 22:29 Magnesium Sulfate 50 ml @ 0 mls/hr PROTOCOL PRN IV MAGNESIUM PROTOCOL 10/12/24 09:30 11/11/24 09:29 Ondansetron HCl (zoFRAN 4MG INJ) 4 mg Q6H PRN IVP NAUSEA/VOMITING 10/11/24 22:30 11/10/24 22:29 Potassium Chloride 100 ml @ 100 mls/hr AD PRN IV POTASSIUM PROTOCOL 10/12/24 09:30 11/11/24 09:29 Potassium Chloride (K-Dur 10meq Sr Tab) 10 meq AD PRN PO POTASSIUM PROTOCOL 10/12/24 09:30 11/11/24 09:29 10/12/24 14:26 10 MEQ Potassium Chloride (KCl 10% Elixir 20meq/15ml) 10 meq AD PRN PO POTASSIUM PROTOCOL 10/12/24 09:30 11/11/24 09:29 Temazepam (restORIL 15 MG CAP) 15 mg HS PRN PO INSOMNIA/SLEEP 10/11/24 22:30 11/10/24 22:29 DIAGNOSTICS / RADIOLOGY: [ ] ASSESSMENT: Chest pain with high risk for cardiac etiology, POA Hypertensive urgency, POA Bradycardia, POA Arrhythmias, POA Acute complicated cystitis, POA Hyperglycemia History of AFib and cardioversion x2, on metoprolol, Eliquis, and Tikosyn Anxiety/depression Coronary artery disease Arthritis Septuagenarian atrial fibrillation (cardioversion x2), CAD, arthritis, depression, and anxiety PLAN: Continue ceftriaxone Trend WBCs continue aripiprazole, Wellbutrin and temazepam O2 nasal cannula as needed Continue Eliquis, aspirin, atorvastatin, dofetilide and metoprolol Monitor blood pressure Follow up with Cardiology Heart healthy diet No need for GI prophylaxis Continue Colace No need for IV fluids Trend a.m. BMP Replete electrolytes as necessary DVT prophylaxis with Lovenox Trend a.m. CBC Full code Case was discussed with patient's nurse at bedside Attention time greater than 30 minutes JOB CASEY IV, MD Oct 12, 2024 14:40
--- NOTE | 2024-10-12 15:26 | HMCSR ---
APPROVED REPORT EXAM: Two-dimensional and M-mode echocardiogram with Doppler and color Doppler. INDICATION ICD: Atrial Fibrillation 2D Dimensions RVDd3.5 cmLVEF(%)71.1 (>50%)LVED Vol(simp.)82.0 mL IVSd0.6 (0.7-1.1cm)FS(%)41 %LVES Vol(simp.)30.0 mL LVDd5.0 (3.8-5.6cm)LA (2D)4.2 (1.6-4.0cm)LVEF(%, simp.)63 % PWd1.0 (0.7-1.1cm)Ao Root(2D)2.7 (2.0-3.7cm)LA ESV INDEX (4CH)34.79 mL/m2 LVDs3.0 (2.5-4.0cm)LVOT diam2.1 (1.8-2.4cm)LA ESV INDEX (BP)36.81 mL/m2 IVC diam1.4 cm Deformation Strain Apical 4-18.0 % Apical 2-21.0 % Apical 3-24.0 % Global Strain-21.0 % M-Mode Dimensions EPSS0.8 cm LA (MM)4.6 (1.6-4.0cm) Ao Root(MM)2.5 (2.0-3.7cm) Aortic Valve AoV Vmax1.5 m/Jenny Peak GR9.2 mmHgLVOT Vmax1.3 m/s AoV VTI0.3 mAo Mean GR4.4 mmHgLVOT VTI0.29 m ELVIRA (VMAX)3.2 cm2AVA (VTI) 3.2 cm2 Mitral Valve MV E Vmax71.6 cm/sDECEL [id number] ms MV A Vmax35.8 cm/sP 1/2 T47 ms E/A ratio2.0MVA (PHT)4.7 cm2 TDI E/E' Medial7.2 Left Ventricle Left ventricular cavity size is normal. GS -21%. Normal wall motion There is normal left ventricular wall thickness. LVEF is 60-65%. Normal diastolic function Right Ventricle The right ventricle is normal size. The right ventricular systolic function is normal. Atria The left atrium is mildly dilated. The right atrium is dilated. Aortic Valve NOt well seen in short axis No aortic regurgitation is present. There is no aortic valvular stenosis. Mitral Valve The mitral valve is normal in structure and function. There is no mitral valve regurgitation noted. T here is no mitral valve stenosis. Tricuspid Valve The tricuspid valve is normal in structure and function. There is trace tricuspid valve regurgitation noted. Pulmonic Valve NOt well seen There is no pulmonic valvular regurgitation. Great Vessels The aortic root is normal in size. The IVC is normal in size and collapses >50% with inspiration. Pericardium No pericardial effusion. Conclusion LVEF is 60-65%. There is normal left ventricular wall thickness. Left ventricular cavity size is normal. Normal wall motion Normal diastolic function The left atrium is mildly dilated. No pericardial effusion. Normal pulmonary pressures Study quality was difficult
[2024-10-12 16:00] VITALS: BP 142/70; PULSE 63; RESP 16; TEMP 98.6
[2024-10-12 18:15] VITALS: BP 139/68; PULSE 65; RESP 20; TEMP 98
[2024-10-12 18:17] VITALS: O2SAT 97
[2024-10-12 20:00] VITALS: O2SAT 97
[2024-10-12 20:30] VITALS: BP 135/75; PULSE 76; RESP 18; TEMP 98.6
[2024-10-12] MEDS: APIXaban 5 MG TABLET PO SCH (20:49)
[2024-10-12] MEDS: DOFETILIDE 250 MCG CAPSULE PO SCH (21:49)
[2024-10-13 00:26] VITALS: BP 130/78; PULSE 80; RESP 18; TEMP 98.8
[2024-10-13 04:01] LABS: HEMATOCRIT 36.9 % (36-48); MEAN CORPUSCULAR HEMOGLOBIN 30.7 pg (27.0-33.0); MEAN CORPUSCULAR HGB CONC 33.1 g/dL (32.0-36.0); MEAN CORPUSCULAR VOLUME 92.7 fL (79-99); RED BLOOD CELL COUNT(AUTO) 3.98 MIL/uL (4.00-5.50); RED CELL DISTRIBUTION WIDTH 14.1 % (11.0-15.5); WHITE BLOOD COUNT (AUTO) 6.2 K/uL (4.8-10.8)
[2024-10-13 04:45] LABS: CREATININE 0.9 mg/dL (0.5-1.0); POTASSIUM 4.1 mmol/L (3.5-5.1)
[2024-10-13 05:19] VITALS: BP 134/77; PULSE 71; RESP 18; TEMP 98.4
--- NOTE | 2024-10-13 06:04 | NUR ---
QT INTERVAL 0.42 SECONDS AT THIS TIME PER TELEMETRY, PT RUNNING SINUS BRADYCARDIA 52
--- NOTE | 2024-10-13 07:06 | EKG ---
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 : 1955 Requested By: MARYJO DONATO Order Number: [id number] Reading MD: Bj Oakley Measurements Intervals [place] Rate: 66 P: 152 [place]: 164 QRS: 20 QRSD: 94 T: 90 QT: 481 QTc: 505 Interpretive Statements Sinus or ectopic atrial rhythm Ventricular premature complex Anteroseptal infarct, age indeterminate Prolonged QT interval Compared to ECG 10/12/2024 14:24:12 Ectopic atrial rhythm now present Ventricular premature complex(es) now present Myocardial infarct finding now present Sinus rhythm no longer present ST (T wave) deviation no longer present Electronically Signed On 10-13-2024 16:04:31 CAD DRAFTER by Bj Oakley Please click the below link to view image of tracing.
[2024-10-13 08:00] VITALS: BP 116/71; PULSE 68; RESP 16; TEMP 97.8
[2024-10-13] MEDS: ARIPIPrazole 5 MG TABLET PO SCH (08:36)
[2024-10-13] MEDS: buPROPion HCL 150 MG TABLET.SA PO SCH (08:36)
[2024-10-13] MEDS: metOPROLol sucCINATE 25 MG TAB.SR.24H PO SCH (08:36)
[2024-10-13] MEDS: LoSARTan 25 MG TABLET PO SCH (08:37)
[2024-10-13 09:11] VITALS: O2SAT 97
--- NOTE | 2024-10-13 10:45 | DS ---
Discharge Summary Hospital Course Summary: Ms. Christian Coronado this is a 69-year-old female with history of atrial fibrillation (cardioversion x2), CAD, arthritis, depression, and anxiety presented to the emergency department for evaluation of elevated blood pressure readings. The patient stated that her systolic blood pressure has been greater than 200 for 4 hours. Her reported heart rate in the 30s to 50s. She reported associated symptoms of lightheadedness, dull headache, some midsternal chest pain/pressure which she rated 1/10 which prompted the ED visit. She denied having any fever, chills, shortness of breath, cough, palpitations, edema, abdominal pain, nausea, vomiting, diarrhea, melena, hematochezia, hematemesis, dysuria, or diaphoresis. She is currently visiting the [facility]; she is a winter [place] from [place]. She has no local physician nor telephone maintenance mechanic. She sees a cardiac certified orthoptist [facility] who instructed her to take Tikosyn BID. She is also currently taking metoprolol and Eliquis for her atrial fibrillation. ED provider reported that the patient was noted to having bigeminy, and bradycardia, and hypotension. ED provider reported that the patient was informe d not to take her night time Tikosyn, but that the patient is still took it. ED provider requested patient be admitted with the diagnosis of chest pain with high risk for cardiac etiology, hypertension, and bradycardia. The patient [facility]. Cardiac enzymes were negative x 4. Echocardiogram reported as follows: Conclusion LVEF is 60-65%. There is normal left ventricular wall thickness. Left ventricular cavity size is normal. Normal wall motion Normal diastolic function The left atrium is mildly dilated. No pericardial effusion. Normal pulmonary pressures Study quality was difficult Patient is seen in consultation with telephone maintenance mechanic, a small dose of losartan was added. Home medications were restarted. No QT prolongation noted. Electrolytes within the normal range. Today patient is alert oriented x3, hemodynamically stable, blood pressure 116/71, she refused losartan. Denies dizziness, no headache, no blurry vision, no chest pain, shortness shortness for breath, no palpitations, no nausea, no vomiting, no abdominal pain, no diarrhea, no constipation, no melena, no hematoc hezia, no hematemesis, no hematuria, no dysuria. Plan is for the patient to be discharged home today. Cleared by Cardiology to be discharged home. PHYSICAL EXAM GENERAL APPEARANCE: The patient is awake, alert, and oriented, in no acute cardiopulmonary distress. NEUROLOGICAL: Cranial nerves II-XII grossly intact. Motor is 5/5 in bilateral upper and lower extremities proximal to distal. No sensory deficits. HEENT: Face is symmetric. Pupils are equal and reactive. Extraocular movements are intact. NECK: Supple. No JVD. No thyromegaly. No submental, submandibular, pre- /postauricular, occipital or supraclavicular lymphadenopathy. CHEST: Normal chest expansion. No Telemetry. LUNGS: Absence of any rales, rhonchi or any wheezing. CARDIOVASCULAR: Regular. S1 and S2 normal. No appreciable rubs, murmurs or gallops. ABDOMEN: Soft, nontender, and nondistended. There is no rebound, voluntary guarding, or rigidity. : Deferred. No Damico. EXTREMITIES: Non-edematous and not cyanotic. No clubbing. Good capillary refill. SKIN: No skin breakdown. Business Analyst Project Manager(s): Cardiology Assessment/Plan: Final diagnosis Atypical chest pain, ACS ruled out Hypertensive urgency, POA Bradycardia, POA Arrhythmias, POA Acute uncomplicated cystitis, POA Hyperglycemia History of AFib and cardioversion x2, on metoprolol, Eliquis, and Tikosyn Anxiety/depression Coronary artery disease Arthritis Septuagenarian atrial fibrillation (cardioversion x2), CAD, arthritis, depression, and anxiety Discharge Instructions: Patient instructed to follow up with her primary care physician as an outpatient and to return to the hospital if condition changes. Patient agreed with plan and understood the information provided. Home Medications: Reported Medications Metoprolol Succinate (Metoprolol Succinate) 25 Mg Tab.er.24h, 1 TAB PO DAILY for 30 Days, #30 TAB 0 Refills 10/12/24 Aripiprazole (Abilify) 5 Mg Tablet, 1 TAB PO DAILY for 30 Days, #30 TAB 0 Refills 10/12/24 Bupropion HCl (Wellbutrin Xl) 150 Mg Tab.er.24h, 1 TAB PO DAILY for 30 Days, #30 TAB 0 Refills 10/12/24 Dofetilide (Tikosyn) 250 Mcg Capsule, 1 CAP PO BID for 30 Days, #60 CAP 0 Refills 10/12/24 Apixaban (Eliquis) 5 Mg Tablet, 1 TAB PO BID for 30 Days, #60 TAB 0 Refills 10/12/24 Time spent arranging discharge: 31-60 minutes DIOGO WARD MD Oct 13, 2024 10:45
[2024-10-13] MEDS ORDERED: NITR100C PO (10:47)
[2024-10-13 12:00] VITALS: BP 147/94; PULSE 93; RESP 16; TEMP 98.5
== END 2024-10-13 12:34 | disposition home or self-care (01) | DRG 305 ==
LOC: EDH 19:15 → EDHIP 21:53 → 2DH 10-12 18:33
PROVIDERS: ADMIT Internal Medicine; ATTEND Internal Medicine
DX: I16.0 Hypertensive urgency (principal); N30.00 Acute cystitis without hematuria; I10 Essential (primary) hypertension; I48.91 Unspecified atrial fibrillation; R00.1 Bradycardia, unspecified; I95.9 Hypotension, unspecified; I25.10 Atherosclerotic heart disease of native coronary artery without angina pectoris; F32.A Depression, unspecified; F41.9 Anxiety disorder, unspecified; R73.9 Hyperglycemia, unspecified; Z79.82 Long term (current) use of aspirin; Z79.899 Other long term (current) drug therapy; I49.3 Ventricular premature depolarization
CPT/HCPCS: 36415; 71045; 80048; 81001; 82550; 82948; 83036; 83735; 83880; 84100; 84443; 84484; 85025; 85027; 87086; 93005; 93306; 93356; 99285; G0378; J0360; J0696; J3475